=== PATIENT | female | born 1960 | race Caucasian/White ===

== ENCOUNTER 2025-05-04 13:26 | Inpatient (IN) ==
--- NOTE | 2025-05-04 13:42 | Emergency Department Note ---
Impression & Plan Acute hypoxic respiratory failure, CHF (congestive heart failure), Anasarca, Pleural effusion ED Provider Note NAME: MK MOSQUEDA AGE: 65 SEX: F : 1960 ARRIVES VIA: Walk-In INFORMANT: Patient ED PROVIDER(S): Roberto Beaulieu DO CHIEF COMPLAINT: shortness of breath, swelling in legs and abdomin HPI: Patient is a 65-year-old female with a past medical history of alcohol abuse and a smoker who presents to the ER for swelling in her bilateral lower extremities and abdomen which has been getting worse over the past 2 to 3 months. She admits to increasing shortness of breath associated with this. She denies any chest pain or belly pain but notes that her abdomen is swollen and feels distended. No dysuria, urgency, or frequency. No other exacerbating or remitting factors. ADDITIONAL HISTORY OBTAINED: Per HPI Chronic Medical/Social Conditions Affecting Care: Per HPI PAST MEDICAL HISTORY:See Below PAST SURGICAL HISTORY:See Below FAMILY HISTORY:See Below SOCIAL HISTORY:See Below HOME MEDICATIONS:See Below ALLERGIES:See Below VITALS:See Below PHYSICAL EXAMINATION: GENERAL: Sitting up in bed, alert, chronically ill-appearing, disheveled, dyspneic with conversation EYE EXAM: normal conjunctiva. PERRL and EOM's grossly intact. OROPHARYNX: no exudate, no erythema, lips, buccal mucosa, and tongue normal and mucous membranes are moist NECK: supple, no nuchal rigidity, no adenopathy, non-tender LUNGS: Clear to auscultation. Normal chest wall mechanics HEART: no murmurs, S1 normal and S2 normal ABDOMEN: abdomen soft, non-tender, normo-active bowel sounds, no masses, no rebound or guarding. UPPER EXTREMITIES: upper extremities are grossly normal. LOWER EXTREMITIES: Pitting edema in the lower extremity tracking up through the abdomen NEURO EXAM: Normal sensorium, cranial nerves II-XII grossly intact, normal speech, no gross weakness of arms, no gross weakness of legs. MEDICAL DECISION MAKING: Patient is a 65-year-old female who presents to the ER for shortness of breath and swelling in the legs and belly. IVs were established and blood work was obtained. Labs show no significant leukocytosis or anemia. VBG with a pH is 7.36 and a CO2 of 78. INR at 1.2. BMP with hypokalemia 3.2 which was repleted with 40 mill equivalents orally. LFTs bilirubin were fairly unremarkable. Lipase was normal. proBNP elevated at 1300. Chest x-ray with pleural effusions. Patient was given IV Lasix. Was updated at bedside. Discussed case with hospitalist for further evaluation management treatment. She remained on OxyMask while in the ER. Respiratory rate trended down to 18-19. She was in no distress. She felt better. CO2 was elevated however she was significantly improved and will hold on BiPAP at this time and defer to the hospitalist at this time. Consults/Care Managements Discussions: Per [facility] Triage Nursing notes reviewed. Limited review of prior medical records performed Vital Signs: reviewed and remarkable for hypoxic Differential diagnosis: Differential diagnoses includes but is not limited to pneumonia, bronchitis, COPD/Asthma exacerbation, pneumothorax, pulmonary embolism, congestive heart failure, acute coronary syndrome ER treatment provided: See below Diagnostics interpreted by me include EKG and cardiac monitoring as listed below: -Cardiac Monitoring: An order was placed for continuous cardiac monitoring. The monitor shows a rate of 95 with sinus rhythm. -ECG: Sinus rhythm rate 95 Normal axis No PVCs QTc 464 -Laboratory studies:Interpreted by me as stated above in MDM and shown below. Imaging studies: Xrays: As interpreted by me: Portable AP upright 1 view of the chest shows bilateral pleural effusions CTs show: none Procedures:none Critical Care: I have personally spent 45 minutes of critical care time in the direct management of this patient. This includes bedside care, interpretation of diagnostic studies, and testing, discussion with consultants, patient, and family members, and other required patient management activities. This 45 minutes is in excess of all separately billable procedures. Past Med/Surg History Problem List (Updated 05/04/25 @ 15:35 by Sergio Roca DO) Bilateral pleural effusion Acute on chronic heart failure Pleural effusion (Acute) Anasarca (Acute) CHF (congestive heart failure) (Acute) Acute hypoxic respiratory failure (Acute) Social History Smoking Status: Former smoker Preferred Language: Czech Feels Safe at Home: Yes Allergies Allergies Allergy/AdvReac Type Severity Reaction Status Date / Time No Known Allergies Allergy Verified 05/04/25 15:03 Home Meds Home Medications Medication Instructions Recorded Confirmed naproxen sodium 220 mg tablet 220 mg PO Q8H PRN Pain 05/04/25 05/04/25 (Aleve) Results & Data (ED) Vital Signs Vital Signs - 24 hr 05/04/25 13:30 05/04/25 13:44 05/04/25 13:54 Temperature 36.6 C Temperature Source Temporal Artery Scan Pulse Rate 105 H 100 H 96 H Pulse Rate [Apical] Pulse Rate from SpO2 Sensor Respiratory Rate 26 H Respiratory Effort / Characteristics Non-Labored Respiratory Depth Normal Blood Pressure 104/59 L Blood Pressure [Right Arm] Blood Pressure Mean 74 Blood Pressure Mean [Right Arm] Pulse Oximetry 75 L 98 Oxygen Delivery Method Room Air Oxymask Oxygen Flow Rate 5 Sepsis Recent Fever Within 48 Hours No Sepsis New/Unexplained Change in Mental Status Yes Sepsis Action Taken by Nursing No Action Required 05/04/25 14:01 05/04/25 14:30 05/04/25 14:30 Temperature Temperature Source Pulse Rate 93 H Pulse Rate [Apical] Pulse Rate from SpO2 Sensor 98 H Respiratory Rate 19 Respiratory Effort / Characteristics Respiratory Depth Blood Pressure 92/66 L 118/75 118/75 Blood Pressure [Right Arm] Blood Pressure Mean 69 89 88 Blood Pressure Mean [Right Arm] Pulse Oximetry 100 Oxygen Delivery Method Oxymask Other Oxygen Flow Rate 3 Sepsis Recent Fever Within 48 Hours Sepsis New/Unexplained Change in Mental Status Sepsis Action Taken by Nursing 05/04/25 15:00 05/04/25 15:00 05/04/25 15:12 Temperature Temperature Source Pulse Rate 90 96 H Pulse Rate [Apical] Pulse Rate from SpO2 Sensor 88 98 H Respiratory Rate 20 30 H Respiratory Effort / Characteristics Respiratory Depth Blood Pressure 102/67 102/67 Blood Pressure [Right Arm] Blood Pressure Mean 88 88 Blood Pressure Mean [Right Arm] Pulse Oximetry 99 99 Oxygen Delivery Method Oxyhood Oxygen Flow Rate 3 Sepsis Recent Fever Within 48 Hours Sepsis New/Unexplained Change in Mental Status Sepsis Action Taken by Nursing 05/04/25 15:24 Temperature Temperature Source Pulse Rate Pulse Rate [Apical] 96 H Pulse Rate from SpO2 Sensor Respiratory Rate 19 Respiratory Effort / Characteristics Respiratory Depth Blood Pressure Blood Pressure [Right Arm] 110/71 Blood Pressure Mean Blood Pressure Mean [Right Arm] 84 Pulse Oximetry 95 Oxygen Delivery Method Nasal Cannula Oxygen Flow Rate 2 Sepsis Recent Fever Within 48 Hours Sepsis New/Unexplained Change in Mental Status Sepsis Action Taken by Nursing Laboratory Data 05/04/25 13:57 05/04/25 13:57 Lab Results 05/04/25 05/04/25 05/04/25 Range/Units 13:51 13:57 13:58 WBC 8.22 (4.8-10.8) K/ul RBC 5.07 (4.20-5.40) M/uL Hgb 15.4 (12.0-16.0) g/dl POC Hgb 17.7 H (12.0-16.0) g/dl Hct 48.2 H (37.0-47.0) % POC Hct 52 H (37-47) % MCV 95.1 (80.0-100.0) fL MCH 30.4 (25.0-34.0) pg MCHC 32.0 (32.0-36.0) g/dL RDW Std Deviation 58.2 H (36.4-46.3) fL RDW Coeff of Kayode 17.2 H (11.5-14.5) % Plt Count 165 (130-400) K/uL MPV 11.7 (9.4-12.4) fL Immature Gran % (Auto) 0.5 % Neut % (Auto) 75.1 % Lymph % (Auto) 11.9 % Clarke % (Auto) 9.7 % Eos % (Auto) 1.9 % Baso % (Auto) 0.9 % Neut # (Auto) 6.17 (1.40-6.50) K/uL Lymph # (Auto) 0.98 L (1.20-3.40) K/uL Clarke # (Auto) 0.80 H (0.11-0.59) K/uL Eos # (Auto) 0.16 (0.00-0.50) K/uL Baso # (Auto) 0.07 (0.00-0.20) K/uL Immature Gran # (Auto) 0.04 (0.01-0.20) K/uL PT 13.0 H (9.0-12.0) Seconds INR 1.2 H (0.9-1.1) VBG pH 7.36 (7.36-7.41) VBG pCO2 78 H (38-50) mmHg VBG pO2 22 mmHg VBG HCO3 44 mmol/L VBG O2 Saturation < 60.0 % VBG Base Excess 14.7 mEq/L POC Sodium 142 (135-144) mmol/L Sodium 143 (136-145) mmol/L POC Potassium 3.1 L (3.3-5.0) mmol/L Potassium 3.2 L (3.5-5.1) mmol/L POC Chloride 94 L (101-112) mmol/L Chloride 96 L (98-107) mmol/L Carbon Dioxide 42 H* (21-32) mmol/L POC Total CO2 37 H (24-31) mmol/L Anion Gap 5 (3-11) POC Anion Gap 15.0 L (16-25) mmol/L POC BUN 16 (7-18) mg/dl BUN 14 (6-23) mg/dl Creatinine 0.58 L (0.6-1.2) mg/dl POC Creatinine 0.7 (0.6-1.3) mg/dl Est Cr Clr Drug Dosing 98.0 ml/min eGFR 100.36 BUN/Creatinine Ratio 24.1 H (10-20) Glucose 92 (70-99(Fasting)) mg/dl POC Glucose (other) 90 (70-99) mg/dl Calcium 8.7 (8.6-10.3) mg/dl POC Ioniz Calcium Harvey 1.10 L (1.12-1.32) mmol/l Total Bilirubin 1.6 H (0.2-1.0) mg/dl AST 20 (13-39) U/L ALT 11 (7-52) U/L Alkaline Phosphatase 79 (34-104) U/L Troponin I High Sens 8.5 (0-14) pg/ml B-Natriuretic Peptide 1372 H (0-100) pg/ml Total Protein 7.3 (6.0-8.3) gm/dl Albumin 3.1 L (3.4-5.0) gm/dl Globulin 4.2 H (2.5-4.0) gm/dl Albumin/Globulin Ratio 0.7 L (0.9-2) Lipase 11 (11-82) U/L Administered Medications Discontinued Medications Furosemide (Furosemide 40 Mg/4 Ml Vial) 40 mg IV NOW STA Stop: 05/04/25 14:44 Last Admin: 05/04/25 15:24 Dose: 40 mg Documented By: BS Potassium Chloride (Potassium Chloride Crtab 20 Meq Tabcr) 40 meq PO NOW STA Stop: 05/04/25 14:44 Last Admin: 05/04/25 15:24 Dose: 40 meq Documented By: BS Imaging Data Radiologist's Impression: Chest X-Ray 05/04/25 13:39 XR chest 1V portable CLINICAL HISTORY: Chest pain, nonspecific. COMPARISON STUDY: No previous studies for comparison. FINDINGS: There is no pneumothorax. [id number] bilateral pleural effusions are noted with associated bibasilar opacities. There may be elevation of the left hemidiaphragm. The heart is enlarged. There is interstitial thickening. Asymmetric left hilar prominence is likely due to the left pulmonary artery. IMPRESSION: 1. Cardiomegaly with interstitial pulmonary edema and small to moderate bilateral pleural effusions. Assisted bibasilar opacities may represent atelectasis or superimposed pneumonia. Radiographic follow-up to ensure resolution is recommended. 2. Asymmetric left hilar prominence, likely due to a dilated left pulmonary artery. However, this should be assessed on follow-up exams to exclude the possibility of underlying lymphadenopathy. ACT 112: Negative or not required by law. Electronically signed by: Cornell Watkins M.D. 05/04/2025 1:54 PM Discharge Plan Visit Data Chief Complaint: Leg Weakness, Bilateral Stated Complaint: FLUID RETENTION/SWELLING, ARM/LEG WEAKNESS ED Provider: Roberto Beaulieu Discharge Problem: Acute hypoxic respiratory failure, CHF (congestive heart failure), Anasarca, Pleural effusion Condition: Serious Forms Stand Alone Forms: [email or web address] Prescriptions Prescriptions: No Action naproxen sodium [Aleve] 220 mg Tablet 220 mg PO Q8H PRN (Reason: Pain) Referrals Referrals: PCP,NO [Primary Care Provider] - Discharge Problem: CHF (congestive heart failure) Qualifiers: Heart failure type: unspecified Heart failure chronicity: unspecified Qualified Code(s): I50.9 - Heart failure, unspecified
--- NOTE | 2025-05-04 13:55 | XRay Report ---
XR chest 1V portable CLINICAL HISTORY: Chest pain, nonspecific. COMPARISON STUDY: No previous studies for comparison. FINDINGS: There is no pneumothorax. [id number] bilateral pleural effusions are noted with asso ciated bibasilar opacities. There may be elevation of the left hemidiaphragm. The heart is enlarged. There is interstitial thickening. Asymmetric left hilar prominence is likely due to the left pulmonar y artery. IMPRESSION: 1. Cardiomegaly with interstitial pulmonary edema and small to moderate bilateral pleural effusions. Assisted bibasilar opacities may represent atelectasis or superimposed pneumonia. Radiographic follow -up to ensure resolution is recommended. 2. Asymmetric left hilar prominence, likely due to a dilated left pulmonary artery. However, this ananth uld be assessed on follow-up exams to exclude the possibility of underlying lymphadenopathy. ACT 112: Negative or not required by law. Electronically signed by: Cornell Watkins M.D. 05/04/2025 1:54 PM
[2025-05-04 14:13] LABS: Hematocrit (blood only) 48.2 % (37.0-47.0); Hemoglobin 15.4 g/dl (12.0-16.0); Immature Granulocytes # (auto) 0.04 K/uL (0.01-0.20); Immature Granulocytes % (auto) 0.5 %; Mean Corpuscular Hemoglobin 30.4 pg (25.0-34.0); Mean Corpuscular Volume 95.1 fL (80.0-100.0); Platelet Count 165 K/uL (130-400); RDW Standard Deviation 58.2 fL (36.4-46.3); Red Blood Count 5.07 M/uL (4.20-5.40); White Blood Count 8.22 K/ul (4.8-10.8)
[2025-05-04 14:19] LABS: Base Excess VBG 14.7 mEq/L; HCO3 VBG 44 mmol/L; Oxygen Saturation VBG < 60.0 %; PCO2 VBG 78 mmHg (38-50); PO2 VBG 22 mmHg; pH VBG 7.36 (7.36-7.41)
[2025-05-04 14:33] LABS: Alanine Aminotransferase 11.0 U/L (7-52); Albumin Globulin Ratio 0.7 (0.9-2); Alkaline Phosphatase 79.0 U/L (34-104); Anion Gap 5.0 (3-11); Bilirubin,Total 1.6 mg/dl (0.2-1.0); Blood Urea Nitrogen 14.0 mg/dl (6-23); Calcium 8.7 mg/dl (8.6-10.3); Carbon Dioxide 42.0 mmol/L (21-32); Chloride 96.0 mmol/L (98-107); Creatinine Clr Calc Pharmacy 98.0 ml/min; Globulin 4.2 gm/dl (2.5-4.0); Glucose 92.0 mg/dl (70-99(Fasting)); Lipase 11.0 U/L (11-82); Potassium 3.2 mmol/L (3.5-5.1); Sodium 143.0 mmol/L (136-145); Total Protein 7.3 gm/dl (6.0-8.3)
[2025-05-04 14:42] LABS: INR 1.2 (0.9-1.1); Prothrombin Time 13.0 Seconds (9.0-12.0)
[2025-05-04] MEDS: POTASSIUM CHLORIDE CRTAB 20 MEQ TABCR PO STA (15:24)
[2025-05-04] MEDS: FUROSEMIDE 40 MG/4 ML VIAL IV STA (15:24)
--- NOTE | 2025-05-04 15:37 | History & Physical Report ---
Date of Service May 04, 2025 Assessment & Plan (1) Acute on chronic heart failure: (2) Anasarca: (3) Acute hypoxic respiratory failure: (4) Bilateral pleural effusion: Plan Patient 65-year-old female presents with anasarca, high suspicion for possible alcohol induced cardiomyopathy and/or cirrhosis due to her history of alcohol use. Admit to monitored setting Replace potassium Aggressively diurese Monitor electrolytes and renal function Echocardiogram CT of the abdomen pelvis to evaluate for cirrhosis and ascites I anticipate her hypoxia will improve as she diuresis, titrate oxygen to off as able Pending findings on echocardiogram will start goal-directed medical therapy as indicated Discussed advanced directives with the patient, she request full code Son at the bedside agreeable to plan of care History of Present Illness Chief Complaint: Leg swelling and belly swelling Primary Care Provider: NO PCP Patient 65-year-old female who has essentially had no medical care for at least 5 years. Essentially forced to come to the emergency room today by her children for increasing swelling in her legs and abdomen. In the emergency room was noted to be significantly volume overloaded and hypokalemic. Imaging revealed some pleural effusions. I was referred to our service for further evaluation. Time my evaluation patient has received some Lasix and potassium. She is already starting to diurese. Son is at the bedside. She states that she was having a little bit of short of breath with activity. She denies any chest pain. She cannot say how long she has noticed the swelling but has noticed increasing from her legs to her thighs to her hips to her abdomen. She also having some swelling in her left upper extremity. She denies any fever or chills, no cough or cold symptoms. No real changes in her bowel or bladder habits. She is not aware of any other medical conditions. She has not had any significant surgeries. She does have a extensive history of alcohol use. Sounds like she drank mostly beer. She states that she has not had a beer for over 2 months and her son at the bedside confirms. She also states that she has extensive smoking history she also quit smoking about 2 months ago and this is confirmed by her son. Allergies Allergy/AdvReac Type Severity Reaction Status Date / Time No Known Allergies Allergy Verified 05/04/25 15:03 Home Medications Medication Instructions Recorded Confirmed Type naproxen sodium 220 mg tablet 220 mg PO Q8H PRN Pain 05/04/25 05/04/25 History (Aleve) Past Med/Surg History Problem List (Updated 05/04/25 @ 15:35 by Sergio Roca DO) Bilateral pleural effusion Acute on chronic heart failure Pleural effusion (Acute) Anasarca (Acute) CHF (congestive heart failure) (Acute) Acute hypoxic respiratory failure (Acute) Social History Smoking Status: Former smoker Preferred Language: Guyanese Feels Safe at Home: Yes Review of Systems Review of Systems: Pertinent positive and negative review of systems as mentioned in the HPI Physical Exam Physical Exam: Constitutional: Alert, nontoxic, slight distress due to her edema HEENT: Mucous membranes moist. Sclera clear Neck: Soft, no adenopathy Lungs: Decreased breath sounds, prolonged expiratory phase, no wheezes, crackles at the bases CV: S1-S2, regular, no significant murmur Abdomen: Soft, nontender, nondistended, questionable fluid wave, extensive edema in her abdominal pannus essentially up to her nipples Extremities: Severe edema in the lower extremities +4 up through the hips and thighs, 2+ edema left upper extremity Musculoskeletal: No significant swollen or tender joints Derm: Some ruborous and flaking skin of the lower extremity consistent with her edema, no evidence of cellulitis Neuro: No focal deficits Psych: Cooperative, normal mood Results & Data Results & Data Vital Signs (Past 12 Hours) Vital Signs Temp Pulse Pulse Resp BP BP Pulse Ox 05/04/25 15:24 96 H 19 110/71 95 05/04/25 15:12 96 H 30 H 99 05/04/25 15:00 102/67 05/04/25 15:00 90 20 102/67 99 05/04/25 14:30 118/75 05/04/25 14:30 93 H 19 118/75 100 05/04/25 14:01 92/66 L 05/04/25 13:54 96 H 05/04/25 13:44 100 H 98 05/04/25 13:30 36.6 C 105 H 26 H 104/59 L 75 L O2 Del Method O2 Flow Rate 05/04/25 15:24 Nasal Cannula 2 05/04/25 15:12 05/04/25 15:00 05/04/25 15:00 Oxyhood 3 05/04/25 14:30 05/04/25 14:30 Oxymask, Other 3 05/04/25 14:01 05/04/25 13:54 05/04/25 13:44 Oxymask 5 05/04/25 13:30 Room Air Diagnostic Findings Reviewed imaging, laboratory and diagnostic studies. Pertinent findings as below. Hemoglobin 17.7 platelets of 165.2 Sodium 143 Potassium 3.2 Carbon dioxide 42 Creatinine 0.58 Bili more range Troponin within normal range BNP 1372 Personally reviewed chest x-ray, bilateral pleural effusions and haziness/edema in the lower lobes Code Status & VTE Plan VTE Prophylaxis Plan VTE Prophylaxis will be ordered: Yes
[2025-05-04] MEDS: FOLIC ACID 1 MG in SYRINGE 9.8 ML IV STA (15:43)
[2025-05-04] MEDS: THIAMINE HCL 100 MG in SYRINGE 9 ML IV STA (15:43)
[2025-05-04] MEDS ORDERED: ALUMINUM/MAGNESIUM SUSP 30 ML UDC PO PRN (17:56)
[2025-05-04] MEDS ORDERED: MELATONIN 3 MG TAB PO PRN (17:56)
[2025-05-04] MEDS ORDERED: POLYETHYLENE (MIRALAX) 17 GM PACK PO PRN (17:56)
[2025-05-04] MEDS ORDERED: ACETAMINOPHEN 325 MG TAB PO PRN (17:56)
[2025-05-04] MEDS ORDERED: ONDANSETRON INJ 2 MG/ML 2 ML VIAL IV PRN (17:56)
[2025-05-04] MEDS: POTASSIUM CHLORIDE CRTAB 20 MEQ TABCR PO SCH (18:37)
[2025-05-04] MEDS: ENOXAPARIN INJ 40 MG/0.4 ML SYR SQ SCH (18:38)
--- NOTE | 2025-05-04 19:09 | CT Scan Report ---
CT ABDOMEN and PELVIS without INTRAVENOUS CONTRAST HISTORY: Abdominal pain TECHNIQUE: CT abdomen and pelvis without contrast. IV CONTRAST: None ENTERIC CONTRAST: None. COMPARISON: None. FINDINGS: LOWER CHEST: Cardiomegaly. There are coronary calcifications. Small pericardial fluid. Small pleural fluids. Emphysematous changes. LIVER: No focal lesion identified in this noncontrast study. Cirrhotic liver. GALLBLADDER/BILIARY: Cholelithiasis without evidence of cholecystitis. No abnormal biliary dilatation. SPLEEN: Unremarkable. PANCREAS: Unremarkable. ADRENALS: Unremarkable. KIDNEYS: Unremarkable. No stones or hydronephrosis identified. PERITONEUM/RETROPERITONEUM. Large volume abdominopelvic ascites. No lymphadenopathy by size criteria. No aortic aneurysm. ExtensiveCirrhosis GASTROINTESTINAL: No obstruction. Normal appendix. Colonic diverticulosis without evidence of diverticulitis. REPRODUCTIVE: No suspicious pelvic mass identified. ABDOMINAL WALL: Diffuse anasarca. BONES: No acute findings. IMPRESSION: Cirrhosis. Large volume abdominopelvic ascites. Anasarca CHF with cardiomegaly and small pleural fluids. Electronically signed by Danny Figueroa 05-04-2025 7:08 PM
[2025-05-04] MEDS: FUROSEMIDE 40 MG/4 ML VIAL IV SCH (22:35)
[2025-05-05 07:32] LABS: Hematocrit (blood only) 42.0 % (37.0-47.0); Hemoglobin 13.4 g/dl (12.0-16.0); Mean Corpuscular Hemoglobin 30.3 pg (25.0-34.0); Mean Corpuscular Volume 95.0 fL (80.0-100.0); Platelet Count 128 K/uL (130-400); RDW Standard Deviation 58.0 fL (36.4-46.3); Red Blood Count 4.42 M/uL (4.20-5.40); White Blood Count 7.16 K/ul (4.8-10.8)
[2025-05-05 08:04] LABS: Anion Gap 3.0 (3-11); Blood Urea Nitrogen 15.0 mg/dl (6-23); Calcium 7.9 mg/dl (8.6-10.3); Carbon Dioxide 42.0 mmol/L (21-32); Chloride 98.0 mmol/L (98-107); Cholesterol 87.0 mg/dl (0-200); Creatinine Clr Calc Pharmacy 80.2 ml/min; Glucose 70.0 mg/dl (70-99(Fasting)); HDL Cholesterol 42.0 mg/dl; Magnesium 1.7 mg/dl (1.7-2.4); Potassium 4.1 mmol/L (3.5-5.1); Sodium 143.0 mmol/L (136-145); Thyroid Stimulating Hormone 0.895 uIu/ml (0.300-4.500); Triglycerides 48.0 mg/dl (0-150)
[2025-05-05] MEDS: PNEUMOCOCCAL VACCINE (PCV20) 20-VAL CONJ-DIP CRM/PF 0.5 ML SYR IM ONE (09:20)
[2025-05-05] MEDS: SPIRONOLACTONE 100 MG TAB PO SCH (10:37)
[2025-05-05] MEDS: POTASSIUM CHLORIDE CRTAB 20 MEQ TABCR PO SCH (10:39)
--- NOTE | 2025-05-05 10:56 | Hospitalist Progress Note ---
Date of Service May 05, 2025 Assessment & Plan (1) Alcoholic cirrhosis of liver with ascites: (2) Acute on chronic respiratory failure with hypoxia and hypercapnia: (3) Acute on chronic heart failure: (4) Anasarca: (5) Bilateral pleural effusion: Plan 65-year-old female who has not had medical care for many years presents with anasarca. Patient is responding well to diuresis Decrease Lasix to 2 times daily, add Aldactone in the setting of cirrhosis Reviewed CT, cirrhosis most likely from years of alcohol use, will schedule for ultrasound-guided paracentesis on Wednesday, I suspect she may need paracentesis and not be able to diurese all this fluid with medication Patient appears to be chronically hypercapnic with elevated pCO2 and compensated carbon dioxide on on BMP, minimal oxygen supplementation to maintain an O2 sat of 88% or better Potassium has been repleted, continue replacement however decrease frequency with the addition of Aldactone monitor electrolytes daily Monitor renal function Encourage activity Echocardiogram pending Admission and Anticipated Discharge Date Admission Date: May 04, 2025 Subjective Patient states she is feeling much better. Has put out a lot of urine. Swelling in arms and abdomen is improved. She is quite pleased with the progress. Physical Exam Physical Exam: Constitutional: Alert, nontoxic HEENT: Mucous membranes moist. Lungs: Decreased breath sounds, prolonged expiratory phase, dull and few crackles at the bases CV: S1-S2, regular Abdomen: Abdominal pannus edema decreased. Still some fluid wave, no tenderness Extremities: Edema in left upper extremity resolved, decreased edema in the lower extremities, still with significant edema upper thighs and pelvis but skin is starting to loosen, skin is less red Neuro: No focal deficits, generally weak Psych: Cooperative, normal mood Results & Data Results & Data Vital Signs (Past 12 Hours) Vital Signs Temp Pulse Pulse Resp BP Pulse Ox O2 Del Method 05/05/25 07:14 36.3 C L 80 18 97/62 L 95 Nasal Cannula 05/05/25 05:30 79 05/05/25 03:35 36.3 C L 89 18 106/69 95 Room Air 05/04/25 23:36 Nasal Cannula O2 Flow Rate 05/05/25 07:14 3 05/05/25 05:30 05/05/25 03:35 05/04/25 23:36 3 Diagnostic Findings Reviewed imaging, laboratory and diagnostic studies. Pertinent findings as below. CBC stable Potassium 4.1 Carbon oxide 42 Creatinine 0.68 Magnesium 1.7 LFTs stable Lipid panel reviewed TSH 0.89 CT of the abdomen pelvis shows significant cirrhosis and ascites.
[2025-05-05] MEDS: FUROSEMIDE 40 MG/4 ML VIAL IV SCH (15:44)
[2025-05-06 08:33] LABS: Anion Gap 3.0 (3-11); Blood Urea Nitrogen 17.0 mg/dl (6-23); Calcium 8.1 mg/dl (8.6-10.3); Carbon Dioxide 41.0 mmol/L (21-32); Chloride 96.0 mmol/L (98-107); Creatinine Clr Calc Pharmacy 71.8 ml/min; Glucose 96.0 mg/dl (70-99(Fasting)); Magnesium 1.6 mg/dl (1.7-2.4); Potassium 4.9 mmol/L (3.5-5.1); Sodium 140.0 mmol/L (136-145)
--- NOTE | 2025-05-06 09:11 | Cardiology Consultation ---
Date of Consultation May 06, 2025 Assessment & Plan (1) Acute on chronic respiratory failure with hypoxia and hypercapnia: (2) Right heart failure due to pulmonary hypertension: (3) Alcoholic cirrhosis of liver with ascites: (4) Anasarca: (5) Bilateral pleural effusion: Plan 65 year old female with longstanding history of alcohol dependence and tobacco use with no medical care for the past five years who presented to [facility] on 05/04/25 for evaluation of lower leg and abdominal swelling. Found to be significantly volume overloaded upon admission with hypokalemia. Admitted for acute on chronic respiratory failure secondary to acute systolic heart failure exacerbation, p ulmonary hypertension, and alcoholic cirrhosis of liver with ascites. Received IV Lasix and potassium supplementation. ECHO upon admission with findings c/w right-sided CHF and significant pulmonary hypertension. Has significant alcohol cirrhosis with ascites and anasarca and tentatively scheduled for ultrasound- guided paracentesis tomorrow morning. Recommendations: * Appears volume overloaded upon examination with significant abdominal distension and bilateral lower extremity pitting edema * Good response to IV diuresis with total cumulative output -3.5 L and weight trending down * Kidney function remains stable on AM labs * Continue IV Lasix 40 mg BID for diuresis * Continue spironolactone 100 mg daily * Would consider starting midodrine if blood pressure remains low with IV diuresis * Continue to monitor and replace electrolytes as needed (goal K+ 4.0; Mg 2.0) * Daily weights via standing scale and document accurate I&Os * Reinforced CHF education Case discussed and coordinated with Dr. Paulino. Please see Dr. Paulino notes for further recommendations. I spent a total of 45 minutes coordinating, documenting, and providing care for this patient excluding time spent in the performance of separately billed services or time spent by another provider/QHP. BELINDA Montgomery Department of Cardiology Supervising Physician Co-Signing Physician Notes I spent a total of 60 minutes on the date of service in preparation, delivery, and documentation of the care provided to this patient, excluding any time spent in the performance of separately billed services. I have personally performed a history and physical examination on the patient. I have reviewed the advance practitioner's documentation, and I agree with, and take responsibility for the plan of care. 65-year-old female with past medical history of chronic tobacco and alcohol use presented with symptoms of shortness of breath, abdominal distention and lower extreme edema which has been ongoing for the past couple years but has worsened in the last 2 months. She denies any prior history of CAD/CHF. She states she has not seen a physician in many years. Prior to admission she was drinking 4-5 beers a day which she has quit in the last month. Patient states that her swelling was getting significantly worse and then her family advised her to come to the emergency room. Her ECG showed sinus rhythm with no acute ischemic changes. Echocardiogram showed LVEF of 50 to 54%, severe RV enlargement and severely reduced RV systolic function with severe TR and flattening septum consistent with RV pressure and volume overload. Had a long discussion with patient and her family about her severe RV failure. She is tolerating diuretics well however borderline hypotensive. We can consider midodrine if her blood pressure remains low. She is for paracentesis tomorrow. At some point we will need to do a right heart catheterization however first we must optimize patient's volume status. History of Present Illness Reason for Consultation: RV failure Requesting Physician: Sergio Roca DO Attending Physician: Sergio Roca DO History of Present Illness 65 year old female with no medical care for the past five years and no known past medical history who presented to [facility] on 05/04/25 for evaluation of lower leg and abdominal swelling. Found to be significantly volume overloaded upon admission with hypokalemia. Received IV Lasix and potassium supplementation. She developed indigestion symptoms with gas and abdominal upset in February 2025. At that time, she noticed worsening abdominal bloating, loss of appetite, and lower leg swelling. Does not routinely check her weight at home. She notes shortness of breath at baseline that she attributes to long-term history of tobacco use. Denies worsening shortness of breath, orthopnea, or PND. Denies chest pressure, pain, tachy palpitations, lightheadedness, dizziness, or syncope. Denies fever, chills, muscle aches, nausea, vomiting, or flu-like symptoms. Denies past medical history of heart problems and has never followed with cardiology. Former smoker. She smoked 1 pack/day since she was 18 years old and quit 3 months ago. History of alcohol dependence. She was drinking 3 -12 ounce beers every day since she was a college. Quit three months ago. Denies illicit drug use. Denies significant family history of cardiovascular disease. Allergies Allergy/AdvReac Type Severity Reaction Status Date / Time No Known Allergies Allergy Verified 05/04/25 15:03 Home Medications Medication Instructions Recorded Confirmed Type naproxen sodium 220 mg tablet 220 mg PO Q8H PRN Pain 05/04/25 05/04/25 History (Walter) Patient History Social History Smoking Status: Former smoker Tobacco Type: Cigarettes Hx Alcohol Use: Yes Alcohol type: beer Hx Substance Use: No Preferred Language: Vietnamese Manager Mortgage Required: No Beliefs That Will Affect Care: None Current Living Situation: Spouse Feels Safe at Home: Yes Safety Concerns: Feels Safe At This Time Assistive Devices: Bedside Commode and Glasses Review of Systems Review of Systems: See HPI for pertinent positives. All others negative other than those noted in the HPI. CONSTITUTIONAL: No change in weight, No weakness, No fatigue, No fevers, No sweats or chills. HEENT: No visual changes, No epistaxis, No bleeding gums, No dysphagia, PULMONARY: +shortness of breath. No cough, sputum, or hemoptysis, No wheezing,and No recent change in breathing. CARDIOVASCULAR: +edema. No chest pain, No dyspnea on exertion, No edema, No palpitations, No syncope, No claudication, No calf pain. GASTROINTESTINAL: +abdominal pain, loss of appetite. No change in bowel habits, No significant heartburn, No nausea, No vomiting, No diarrhea, No constipation, No blood in stools or black tarry stools, No dysphagia. HEMATOLOGIC: No abnormal bleeding and No bruising. NEUROLOGICAL: No falls, No dizziness, No lightheadedness, Normal balance, No headaches, and No weakness. PSYCH: No sleep disturbances, No mood changes. Physical Exam Physical Exam: Vital signs within normal limits as above. General: Well developed and nourished. No acute distress. A+Ox3. HEENT: Normocephalic. Atraumatic. EOMI. Conjunctiva and sclera clear. NECK: Trachea midline. No thyromegaly. No carotid bruits. No JVD. Carotid upstrokes are brisk. Heart: RRR. S1 and S2 noted. No murmur. No rubs or gallops. PMI non displaced. Lungs: Diminished breath sounds throughout posterior lobes. Clear to auscultation. No wheezes.No rhonchi. No rales. Abdomen: Abdominal distension. Normal bowel sounds. Soft. Nontender. No abdo tia bruits. Extremities: +1 BLE pitting edema. Normal capillary refill. No clubbing or cyanosis. Pulses: radial=2/4, dorsal pedis=2/4. Skin: Warm and dry. NEURO: No focal deficits. PSYCH: Appropriate affect and insight. Results & Data Vital Signs (Past 12 Hours) Vital Signs Temp Pulse Pulse Resp BP Pulse Ox O2 Del Method 05/06/25 07:41 36.8 C 77 18 96/61 L 97 Nasal Cannula 05/06/25 05:19 83 05/06/25 05:04 93 Nasal Cannula 05/06/25 03:46 36.5 C 88 18 95/65 L 91 Nasal Cannula 05/05/25 23:18 36.6 C 80 20 113/75 97 Nasal Cannula 05/05/25 22:42 Nasal Cannula 05/05/25 21:55 93 H O2 Flow Rate 05/06/25 07:41 2 05/06/25 05:19 05/06/25 05:04 2 05/06/25 03:46 2 05/05/25 23:18 2 05/05/25 22:42 2 05/05/25 21:55 Laboratory Results Comprehensive Metabolic Panel 05/06/25 Range/Units 06:49 Sodium 140 (136-145) mmol/L Potassium 4.9 (3.5-5.1) mmol/L Chloride 96 L (98-107) mmol/L Carbon Dioxide 41 H* (21-32) mmol/L BUN 17 (6-23) mg/dl Creatinine 0.76 (0.6-1.2) mg/dl Glucose 96 (70-99(Fasting)) mg/dl Calcium 8.1 L (8.6-10.3) mg/dl Intake and Output 05/05/25 05/06/25 05/06/25 22:59 06:59 14:59 Intake Total 440 / 940 Output Total 1802 1200 / 1803 Balance -2 / -863 -760 / -863 Intake: Oral 440 / 940 Output: Urine Amount (Catheter) 1200 / 1800 External 1200 / 1800 # Bowel Movements 2 / 3 Other: # Unmeasured Voids 1 Weight 72.1 kg Weight Measurement Method Built in [facility] Diagnostic Findings ECHO 05/05/25 ECHO findings consistent with right-sided CHF and significant pulmonary hypert ension The right ventricular systolic function is moderate to severely reduced The right atrium is severely dilated There is severe tricuspid regurgitation The inferior vena cava is severely dilated The left ventricle is grossly normal in size The left ventricular ejection fraction is grossly normal Flattened septum is consistent with RV pressure/volume overload EKG 05/04/25 NSR with premature supraventricular complexes 95 bpm QTc 464 PG Care Time/CCT Total # of Minutes Spent Total Time Spent with Patient: Total time spent is greater than 50% in coordination of care (as documented) at patient's floor/unit and/or counseling patient: Coding [place] [address] IN/OBS CONSULT LVL 4,60M Patient Type Established Diagnoses Acute on chronic respiratory failure with hypoxia and hypercapnia J96.21; J96.22 Right heart failure due to pulmonary hypertension I27.29; I50.810 Alcoholic cirrhosis of liver with ascites K70.31 Anasarca R60.1 Bilateral pleural effusion J90 Time Spent (min) 60
--- NOTE | 2025-05-06 12:25 | Hospitalist Progress Note ---
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 Patient has significant alcohol cirrhosis with ascites and anasarca. Patient also has severe right ventricular heart failure due to pulmonary hypertension as evidenced by echocardiogram. Continue IV diuresis with Lasix Continue Aldactone Replace electrolytes as needed Paracentesis planned for tomorrow Consult cardiology for right ventricular failure and tricuspid regurgitation., Communication with cardiology team Patient has evidence of chronic hypoxia and hypercapnia. Patient requiring low- flow oxygen. Would not titrate over 3 L. Anticipate will need outpatient pulmonary office evaluation and PFTs. May be a candidate for further interventions for her pulmonary hypertension. Encourage activity as tolerated Patient's systolic blood pressure maintaining in the 90s, suspect this is her baseline blood pressure. Has been remaining stable with diuresis. Patient is asymptomatic. Admission and Anticipated Discharge Date Admission Date: May 04, 2025 Subjective Patient states that she does feel little bit better but can tell that her abdomen is still full of fluid. Physical Exam Physical Exam: Constitutional: Alert, nontoxic HEENT: Mucous membranes moist. Lungs: Decreased breath sounds, prolonged expiratory phase, no wheezes, dullness at bases bilaterally with crackles CV: S1-S2, regular Abdomen: Soft, nontender, positive fluid wave, still edema within the abdominal pannus however decreasing Extremities: Still significant edema lower extremity up through the thighs however decreasing, skin seems to be a little looser Neuro: No focal deficits, generally weak Psych: Cooperative, normal mood Results & Data Results & Data Vital Signs (Past 12 Hours) Vital Signs Temp Pulse Pulse Resp BP Pulse Ox O2 Del Method 05/06/25 11:34 36.5 C 79 18 93/54 L 91 Nasal Cannula 05/06/25 07:41 36.8 C 77 18 96/61 L 97 Nasal Cannula 05/06/25 05:19 83 05/06/25 05:04 93 Nasal Cannula 05/06/25 03:46 36.5 C 88 18 95/65 L 91 Nasal Cannula O2 Flow Rate 05/06/25 11:34 2 05/06/25 07:41 2 05/06/25 05:19 05/06/25 05:04 2 05/06/25 03:46 2 Diagnostic Findings Reviewed imaging, laboratory and diagnostic studies. Pertinent findings as below. Potassium 4.9 Carbon oxide 41, stable Creatinine 0.76 Magnesium 1.6 Echocardiogram shows significant right ventricular failure, dilated right atrium, severe tricuspid regurg, dilated inferior vena cava, significant pulmonary hypertension
[2025-05-06] MEDS: MAGNESIUM OXIDE 400 MG TAB PO SCH (12:33)
--- NOTE | 2025-05-06 12:52 | Electrocardiogram Report ---
Test Reason : Blood Pressure : */* mmHG Vent. Rate : 95 BPM Atrial Rate : 95 BPM P-R Int : 156 ms QRS Dur : 80 ms QT Int : 370 ms P-R-T Axes : -10 169 -19 degrees QTcB Int : 464 ms Sinus rhythm with Premature supraventricular complexes vs wandering atrial pacemaker Possible Right ventricular hypertrophy Cannot rule out Inferior infarct , age undetermined Abnormal ECG No previous ECGs available Confirmed by Delores Farrell (Alessandra) on 05/06/2025 12:52:29 PM Referred By: REFERRED SELF Confirmed By: Delores Farrell
[2025-05-07 06:24] LABS: Hematocrit (blood only) 37.0 % (37.0-47.0); Hemoglobin 12.2 g/dl (12.0-16.0); Immature Granulocytes # (auto) 0.03 K/uL (0.01-0.20); Immature Granulocytes % (auto) 0.4 %; Mean Corpuscular Hemoglobin 31.0 pg (25.0-34.0); Mean Corpuscular Volume 94.1 fL (80.0-100.0); Platelet Count 119 K/uL (130-400); RDW Standard Deviation 56.1 fL (36.4-46.3); Red Blood Count 3.93 M/uL (4.20-5.40); White Blood Count 6.79 K/ul (4.8-10.8)
[2025-05-07 06:58] LABS: Anion Gap 3.0 (3-11); Blood Urea Nitrogen 15.0 mg/dl (6-23); Calcium 8.2 mg/dl (8.6-10.3); Carbon Dioxide 40.0 mmol/L (21-32); Chloride 94.0 mmol/L (98-107); Creatinine Clr Calc Pharmacy 70.8 ml/min; Glucose 105.0 mg/dl (70-99(Fasting)); Magnesium 1.7 mg/dl (1.7-2.4); Potassium 5.1 mmol/L (3.5-5.1); Sodium 137.0 mmol/L (136-145)
[2025-05-07 07:04] LABS: INR 1.2 (0.9-1.1); Prothrombin Time 12.7 Seconds (9.0-12.0)
--- NOTE | 2025-05-07 10:03 | Cardiology Progress Note ---
Date of Service May 07, 2025 Assessment & Plan (1) Acute on chronic respiratory failure with hypoxia and hypercapnia: (2) Right heart failure due to pulmonary hypertension: (3) Alcoholic cirrhosis of liver with ascites: (4) Anasarca: (5) Bilateral pleural effusion: Plan 65 year old female with longstanding history of alcohol dependence and tobacco use with no medical care for the past five years who presented to [facility] on 05/04/25 for evaluation of lower leg and abdominal swelling. Found to be significantly volume overloaded upon admission with hypokalemia. Admitted for acute on chronic respiratory failure secondary to acute systolic heart failure exacerbation, pulmonary hypertension, and alcoholic cirrhosis of liver with ascites. Received IV Lasix and potassium supplementation. ECHO upon admission with findings c/w right-sided CHF and significant pulmonary hypertension. Has significant alcohol cirrhosis with ascites and anasarca and tentatively scheduled for ultrasound- guided paracentesis tomorrow morning. -Diuresing well -Still edematous continue IV diuresis. -Creatinine .77 -K 5.1 Aldactone held for now. -Accurate daily I/O's and weights. -Education on fluid restriction and low sodium diet and restriction. I spent a total of 30 minutes on the date of service in preparation, delivery, and documentation of the care provided to this patient, excluding any time spent in the performance of separately billed services. Casey TREVINO Department of Cardiology, [facility] This chart was completed in part utilizing Speech Voice Recognition Software. Grammatical errors, random word insertions, pronoun errors, and incomplete sentences are an occasional consequence of this system due to software limitations, ambient noise, and hardware issues. Any formal questions or concerns about the content, text, or information contained within the body of this dictation should be directly addressed to the provider for clarification. Admission and Anticipated Discharge Date Admission Date: May 04, 2025 Supervising Physician Co-Signing Physician Notes Attending attestation: Case reviewed with the advanced practitioner. I have personally performed a history and physical examination on the patient. I have reviewed the advanced practitioner's documentation on the date of service referenced in note, and I agree with, and take responsibility for the plan of care. Subjective: Patient seen and examined. Her son, Ramesh, was at the bedside. Subjectively she notes marked improvement and has been diuresing about 2 L/day for the last 3 days. Patient underwent paracentesis today under ultrasound guidance, yielding 700 mL of fluid. She is currently not on telemetry as of 550 on 05/07/2025. Earlier today, sinus rhythm at rest around 100 bpm noted. Exam: Cardiovascular: Tachycardic, 2/6 systolic murmur, 1+ bilateral lower extremity edema Abdomen: Mildly distended, soft Data: Echocardiogram reviewed independently with severe right-sided chamber enlargement, D-shaped septum, consistent with right ventricular pressure/volume overload, severe tricuspid regurgitation. Impression/ Plan: (1) Acute on chronic respiratory failure with hypoxia and hypercapnia: (2) Right heart failure due to pulmonary hypertension: (3) Alcoholic cirrhosis of liver with ascites: (4) Anasarca: (5) Bilateral pleural effusion: I asked the patient about her alcohol use. At first she stated that she was drinking 3 drinks per day, ceased two months ago, but on further discussion her and her son just said she was drinking "a lot ". She also quit smoking two months ago. She states that it has been about 5 years since she had been seen by healthcare provider in [place]. Continue furosemide 60 mg IV twice daily. I have held her spironolactone as potassium has trended up to 5 mmol/L Recheck BMP tomorrow. I requested a repeat limited echo with the administration of agitated saline contrast to assess for interatrial shunt. Further recommendations with regards to workup to be forthcoming as her volume status improves. The patient is preload dependent, and at present I would hold off on adding an additional medication such as metoprolol. I spent a total of 30 minutes coordinating, documenting, and providing care for this patient excluding time spent in the performance of separately billed services or time spent by another provider. Giovanny Mooney, DO Subjective Pt states she feels a lot better and states he can tell a lot of fluid is off as her abdomen is softer and not as hard. States she is constantly voiding and the aids have been constantly emptying her [place] catheter container. She does report that she is weak and has been getting progressively weaker recently even before this admission. States that she is furniture walking at home and has stopped going upstairs due to not being able to get her feet under her. States while here she is getting somewhat weaker and can not get up from a lower position. Is now using a walker and getting around a little better. She denies any lightheadedness, dizziness, cp, sob, palpitations both at rest or with ambulation. States it is just a weakness issue and all the fluid. No other complaints or issues to report at this time. Review of Systems Review of Systems: All systems reviewed & are unremarkable except as noted in HPI & below Constitutional: + weakness Genitourinary: + urinary frequency Musculoskeletal: + muscle weakness Neurologic: + unsteadiness and + generalized weaknes s Physical Exam Constitutional: WD/WN, vitals as above + ill appearing and + overweight Eyes: PERRL Neck: trachea midline, no thyromegaly Respiratory: normal respiratory effort, lungs clear to auscultation Auscultation: + diminished lung sounds Cardiovascular: RRR, no murmur, no edema Rate/Rhythm: regular rate and regular rhythm Vessels: + JVD Extremities: + pedal edema and + edema Gastrointestinal (Abdomen): Inspection/Auscultation: normal bowel sounds and + abdominal edema Percussion/Palpation: + ascites Musculoskeletal: no cyanosis or clubbing, extremities motor strength 5/5 Skin: no rashes, warm and dry Neurologic: PERRL, EOMI, accommodation nl, no face palsy, no dysarthria Psychiatric: A+Ox3, euthymic affect Results & Data Vital Signs (Past 12 Hours) Vital Signs Temp Pulse Pulse Resp BP BP Pulse Ox 05/07/25 08:22 36.6 C 95 H 20 95/63 L 90 05/07/25 05:31 91 H 05/07/25 03:39 36.7 C 83 20 94/61 L 92 05/07/25 00:20 36.7 C 84 20 111/72 97 05/06/25 22:33 O2 Del Method O2 Flow Rate 05/07/25 08:22 Nasal Cannula 2 05/07/25 05:31 05/07/25 03:39 Room Air 05/07/25 00:20 Room Air 05/06/25 22:33 Nasal Cannula 2 Laboratory Results Coagulation 05/07/25 Range/Units 05:54 PT 12.7 H (9.0-12.0) Seconds CBC 05/07/25 Range/Units 05:54 WBC 6.79 (4.8-10.8) K/ul RBC 3.93 L (4.20-5.40) M/uL Hgb 12.2 (12.0-16.0) g/dl Hct 37.0 (37.0-47.0) % Plt Count 119 L (130-400) K/uL Neut # (Auto) 4.80 (1.40-6.50) K/uL Lymph # (Auto) 0.74 L (1.20-3.40) K/uL [place] # (Auto) 0.81 H (0.11-0.59) K/uL Eos # (Auto) 0.39 (0.00-0.50) K/uL Baso # (Auto) 0.02 (0.00-0.20) K/uL Comprehensive Metabolic Panel 05/07/25 Range/Units 05:54 Sodium 137 (136-145) mmol/L Potassium 5.1 (3.5-5.1) mmol/L Chloride 94 L (98-107) mmol/L Carbon Dioxide 40 H (21-32) mmol/L BUN 15 (6-23) mg/dl Creatinine 0.77 (0.6-1.2) mg/dl Glucose 105 H (70-99(Fasting)) mg/dl Calcium 8.2 L (8.6-10.3) mg/dl Intake and Output 05/06/25 05/07/25 05/07/25 22:59 06:59 14:59 Intake Total 350 / 1590 300 / 1590 Output Total 901 / 1644 500 / 1644 Balance -551 / -54 -200 / -54 Intake: Oral 350 / 1590 300 / 1590 Output: Urine Amount (Catheter) 900 / 1400 500 / 1400 External 900 / 1400 500 / 1400 # Bowel Movements 1 / 4 Other: # Unmeasured Voids 1 Weight 70 kg Weight Measurement Method Built in [facility] Medications Administered Current Inpatient Medications Acetaminophen (Acetaminophen 325 Mg Tab) 650 mg PO Q4H PRN PRN Reason: Pain or Fever Stop: 06/03/25 17:55 Al Hydrox/Mg Hydrox/Simethicone (Aluminum/Magnesium Susp 30 Ml Udc) 15 ml PO Q4H PRN PRN Reason: Dyspepsia Stop: 06/03/25 17:55 Enoxaparin Sodium (Enoxaparin Inj 40 Mg/0.4 Ml Syr) 40 mg SQ DAILY@1800 [place] Stop: 06/03/25 18:44 Last Admin: 05/06/25 17:09 Dose: 40 mg Furosemide (Furosemide 40 Mg/4 Ml Vial) 40 mg IV [id number] [facility] Stop: 06/04/25 13:59 Last Admin: 05/07/25 06:02 Dose: 40 mg Magnesium Oxide (Magnesium Oxide 400 Mg Tab) 400 mg PO BID [place] Stop: 06/05/25 12:29 Last Admin: 05/07/25 09:55 Dose: 400 mg Melatonin (Melatonin 3 Mg Tab) 3 mg PO HS PRN PRN Reason: Sleep Stop: 06/03/25 17:55 Ondansetron HCl (Ondansetron Inj 2 Mg/Ml 2 Ml Vial) 4 mg IV Q6H PRN PRN Reason: Nausea Stop: 06/03/25 17:55 Polyethylene Glycol (Polyethylene (Miralax) 17 Gm Pack) 17 gm PO DAILY PRN PRN Reason: Constipation Stop: 06/03/25 17:55 Spironolactone (Spironolactone 100 Mg Tab) 100 mg PO QAM [place] Stop: 06/04/25 08:59 Last Admin: 05/06/25 08:28 Dose: 100 mg PG Care Time/CCT Total # of Minutes Spent Total Time Spent: 30 Coding Level of Care Code 01543 SUB INP/OBS CARE 3/50MIN History Comprehensive Exam Comprehensive Medical Decision Making High Complexity Diagnoses Acute on chronic respiratory failure with hypoxia and hypercapnia J96.21; J96.22 Right heart failure due to pulmonary hypertension I27.29; I50.810 Alcoholic cirrhosis of liver with ascites K70.31 Anasarca R60.1 Bilateral pleural effusion J90 Time Spent (min) 60 Comment 30 minutes spent by BELINAD Talamantes, [address] Mooney
--- NOTE | 2025-05-07 11:29 | Hospitalist Progress Note ---
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 Increase Lasix to 60 mg daily Plan for paracentesis today Aldactone put on hold by cardiology due to high normal potassium Continue to monitor electrolytes and renal function Reviewed therapy note, recommending rehab, discussed this with patient she believes that she will be out of return home with the assistance of family and some assistive devices. Anticipate possible discharge in next 1 to 2 days with ongoing diuresis at home. In the setting of pulmonary pretension, patient may need home oxygen will do two-step prior to discharge Admission and Anticipated Discharge Date Admission Date: May 04, 2025 Subjective Patient reports feeling better, she thinks she is putting out a lot of urine, intake and output/weight has not changed much last 24 hours. Physical Exam Physical Exam: Constitutional: Alert, nontoxic HEENT: Mucous membranes moist. Lungs: Decreased breath sounds, prolonged, crackles at bases CV: S1-S2, regular Abdomen: Abdomen much softer than on admission, edema is less in the abdomen, positive fluid wave Extremities: Continued thick edema lower extremities upper thighs Neuro: No focal deficits, generally weak Psych: Cooperative, normal mood Results & Data Results & Data Vital Signs (Past 12 Hours) Vital Signs Temp Pulse Pulse Resp BP BP Pulse Ox 05/07/25 08:22 36.6 C 95 H 20 95/63 L 90 05/07/25 05:31 91 H 05/07/25 03:39 36.7 C 83 20 94/61 L 92 05/07/25 00:20 36.7 C 84 20 111/72 97 O2 Del Method O2 Flow Rate 05/07/25 08:22 Nasal Cannula 2 05/07/25 05:31 05/07/25 03:39 Room Air 05/07/25 00:20 Room Air Diagnostic Findings Reviewed imaging, laboratory and diagnostic studies. Pertinent findings as below. WBC 6.7 Hemoglobin 12.2 Platelets of 119 Potassium 5.1 Carbon oxide 40 Creatinine 0.77 Magnesium 1.7
--- NOTE | 2025-05-07 14:45 | Ultrasound Report ---
ULTRASOUND-GUIDED PARACENTESIS CLINICAL HISTORY: Ascites PROCEDURE: Procedure and risks were explained. Informed consent was obtained. A final timeout was com pleted. The abdomen was prepped and draped in sterile fashion. 1% lidocaine was utilized for skin ane sthesia. Utilizing ultrasound guidance, a 5 Lao safety centesis catheter was advanced into the right lower quadrant pocket of ascites. Ultrasound images were obtained. 700 mL of yellow ascites fluid was remov ed and sent to the lab. The catheter was removed and Band-Aid applied. The patient tolerated the proc edure well. Vital signs will be monitored postprocedure. IMPRESSION: Ultrasound-guided paracentesis as above. Performed, dictated, and signed by Trace Guevara PA-C; to be co-signed by Dr. Mode Donaldson. Electronically signed by: Mode Donaldson M.D. 05/07/2025 4:16 PM
[2025-05-07] MEDS: FUROSEMIDE 40 MG/4 ML VIAL IV SCH (14:55)
[2025-05-07 18:02] LABS: Appearance Peritoneal Fluid Clear; Color Peritoneal Fluid Pale Yellow; RBC Peritoneal Fluid Auto 2000 /uL; WBC Peritoneal Fluid Auto 407 /ul (0-300)
[2025-05-08 07:32] LABS: Anion Gap 1.0 (3-11); Blood Urea Nitrogen 16.0 mg/dl (6-23); Calcium 8.1 mg/dl (8.6-10.3); Carbon Dioxide 45.0 mmol/L (21-32); Chloride 89.0 mmol/L (98-107); Creatinine Clr Calc Pharmacy 76.8 ml/min; Glucose 82.0 mg/dl (70-99(Fasting)); Potassium 4.8 mmol/L (3.5-5.1); Sodium 135.0 mmol/L (136-145)
[2025-05-08 09:05] LABS: iSTAT Art Bld Gas Base Excess 20.0 meg/L (-9-1.8); iSTAT Art Bld Gas pCO2 Correct 68 mmHg (35-46); iSTAT Art Bld Gas pH Corrected 7.418 (7.35-7.45); iSTAT Arterial Blood Gas pO2 C 45
--- NOTE | 2025-05-08 11:39 | Hospitalist Progress Note ---
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 This is due to biventricular failure due to pulmonary pretension and longtime smoking as well as alcoholic cirrhosis. Patient has significantly responded to the increase in Lasix. Diuresing well. Carbon oxide slightly increased from what her baseline is. She is well compensated for chronic respiratory acidosis. Concerned there might be some slight contraction alkalosis occurring. Discontinue IV Lasix 1 dose of IV Diamox today Start oral Lasix tomorrow for possible plan for home dosing Communication with nurse that patient really should not be on more than 2 L of nasal cannula oxygen, I fully anticipate that she will desaturate with activity, however this will be her baseline. Much higher flow raises her risk for hypercapnia. Will anticipate two-step oxygen evaluation for home oxygen Therapy recommending rehab, patient is unsure that she would want to go to rehab, believes that she has enough family support. May be able to go home with home health care. Will need care coordinated outpatient with PCP, cardio, pulmonary, GI Admission and Anticipated Discharge Date Admission Date: May 04, 2025 Subjective Patient pleased with her diuresis. Denies any chest pain. No lightheadedness or dizziness with changes in positions, but she does get short of breath. Nursing reports she does desaturate with activity. Physical Exam Physical Exam: Constitutional: Alert, nontoxic HEENT: Mucous membranes moist. Lungs: decreased breath sounds, prolonged expiratory phase, poor airflow, dull at bases, some slight pursed lip breathing CV: S1-S2, regular Abdomen: Soft, nontender, nondistended, decreased fluid wave, no tenderness, significant decreased edema in abdomen pannus Extremities: Significant improvement in edema in thighs and legs, skin is now loose and starting to wrinkle Neuro: No focal deficits, generally weak Psych: Cooperative, normal mood Results & Data Results & Data Vital Signs (Past 12 Hours) Vital Signs Temp Pulse Resp BP BP Pulse Ox O2 Del Method 05/08/25 08:02 36.7 C 86 16 100/62 97 Nasal Cannula 05/08/25 07:32 79 91/58 L 98 Nasal Cannula 05/08/25 06:46 85 92/57 L 05/08/25 00:28 36.8 C 94 H 20 95/61 L 97 Room Air O2 Flow Rate 05/08/25 08:02 3 05/08/25 07:32 2 05/08/25 06:46 05/08/25 00:28 2 Diagnostic Findings Reviewed imaging, laboratory and diagnostic studies. Pertinent findings as below. -3.5 L last 24 hours Reviewed reported ABG, this is a venous draw. Sodium 135 Potassium 4.8 Carbon dioxide 45 essentially baseline slightly increased, Paracentesis fluid reviewed, pathology showing mesothelial benign cells
[2025-05-08 13:26] LABS: Lymphocytes, Fluid 16 %; Mono,Macrophage,Mesothelial 80 %; Neutrophils, Fluid 4 %
[2025-05-08] MEDS: acetaZOLAMIDE 500 MG in SYRINGE 0 ML IV ONE (13:41)
--- NOTE | 2025-05-08 14:50 | Cardiology Progress Note ---
Date of Service May 08, 2025 Assessment & Plan (1) Acute on chronic respiratory failure with hypoxia and hypercapnia: (2) Right heart failure due to pulmonary hypertension: (3) Alcoholic cirrhosis of liver with ascites: (4) Anasarca: (5) Bilateral pleural effusion: Plan 65 year old female with longstanding history of alcohol dependence and tobacco use with no medical care for the past five years who presented to [facility] on 05/04/25 for evaluation of lower leg and abdominal swelling. Found to be significantly volume overloaded upon admission with hypokalemia. Admitted for acute on chronic respiratory failure secondary to acute systolic heart failure exacerbation, pulmonary hypertension, and alcoholic cirrhosis of liver with ascites. Received IV Lasix and potassium supplementation. ECHO upon admission with findings c/w right-sided CHF and significant pulmonary hypertension. Has significant alcohol cirrhosis with ascites and anasarca 05/08/2025 1. Anasarca multifactorial including severe pulmonary hypertension and alcoholic cirrhosis. Has responded briskly to diuretics. Agree with transition to oral furosemide and spironolactone following potassium levels. 2. Right heart failure/pulmonary hypertension secondary to underlying pulmonary disease. Would repeat chest x-ray in a.m. versus CT of chest Echocardiogram without intracardiac shunt. Extracardiac shunt suspected likely at hepatic level Admission and Anticipated Discharge Date Admission Date: May 04, 2025 Subjective Patient was seen and personally examined. Notes feels substantially changed/improved since hospitalization. Now able to lift legs with marked edema resolving. No acute worsening of dyspnea no chest pains no orthopnea no tachypalpitations Patient has responded diurese with brisk loss of nearly 7 kg and volume with evidence of diffuse anasarca on initial presentation Maintaining oxygenation on 3 L nasal cannula. Echocardiogram today did not demonstrate intracardiac shunt No history of arthropathy or autoimmune disease. Review of Systems Review of Systems: All systems reviewed & are unremarkable except as noted in Subjective Results & Data Vital Signs (Past 12 Hours) Vital Signs Temp Pulse Resp BP BP Pulse Ox O2 Del Method 05/08/25 08:02 36.7 C 86 16 100/62 97 Nasal Cannula 05/08/25 07:32 79 91/58 L 98 Nasal Cannula 05/08/25 06:46 85 92/57 L O2 Flow Rate 05/08/25 08:02 3 05/08/25 07:32 2 05/08/25 06:46 PG Care Time/CCT Total # of Minutes Spent Total Time Spent with Patient: Total time spent is greater than 50% in coordination of care (as documented) at patient's floor/unit and/or counseling patient: Coding Level of Care Code 18167 SUB INP/OBS CARE 3/50MIN Diagnoses Acute on chronic respiratory failure with hypoxia and hypercapnia J96.21; J96.22 Right heart failure due to pulmonary hypertension I27.29; I50.810 Alcoholic cirrhosis of liver with ascites K70.31 Anasarca R60.1 Bilateral pleural effusion J90
[2025-05-09 07:42] LABS: Hematocrit (blood only) 38.0 % (37.0-47.0); Hemoglobin 12.3 g/dl (12.0-16.0); Mean Corpuscular Hemoglobin 30.5 pg (25.0-34.0); Mean Corpuscular Volume 94.3 fL (80.0-100.0); Platelet Count 113 K/uL (130-400); RDW Standard Deviation 55.5 fL (36.4-46.3); Red Blood Count 4.03 M/uL (4.20-5.40); White Blood Count 5.68 K/ul (4.8-10.8)
[2025-05-09] MEDS: FUROSEMIDE 80 MG TAB PO SCH (08:20)
--- NOTE | 2025-05-09 09:08 | Hospitalist Progress Note ---
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 This is due to biventricular failure due to pulmonary HTN and longtime smoking as well as alcoholic cirrhosis. Patient has significantly responded to the increase in Lasix. Diuresing well. BP on lower side - will hold lasix , communicated with cardiology - CXR ordered ABG obtained yesterday (05/08) Carbon oxide slightly increased from what her baseline is. She is well compensated for chronic respiratory acidosis. Concerned there might be some slight contraction alkalosis occurring. Today's BMP still pending Previous provider communicated with nurse that patient really should not be on more than 2 L of nasal cannula oxygen, anticipate that she will desaturate with activity, however this will be her baseline. Much higher flow raises her risk for hypercapnia. I discussed with RN today - pt is on 2L and sats 91%. Will anticipate two-step oxygen evaluation for home oxygen Therapy recommending rehab, patient is unsure that she would want to go to rehab, believes that she has enough family support. May be able to go home with home health care. Will need care coordinated outpatient with PCP, cardio, pulmonary, GI Admission and Anticipated Discharge Date Admission Date: May 04, 2025 Subjective Pt seen in follow up of acute hypoxic resp. failure, anasarca, right sided HF Currently pt is lying in bed in NAD, she is on suppl. O2 on 2L. BP on lower side and so lasix held this AM Pt reports feeling improved , says she was in hallway walking yesterday with PT Denies any chest pain, any abd. pain, currently denies shortness of breath , she has occasional cough, and some white sputum - reports it's not unusual for her Cardiology also following closely CXR ordered Review of Systems Review of Systems: All systems reviewed & are unremarkable except as noted in Subjective Physical Exam Physical Exam: Constitutional: slim elderly F , chronically ill appearing, on suppl. O2 via NC HEENT: NC/AT. Mucous membranes moist. Lungs: decreased breath sounds, prolonged expiratory phase, poor airflow, no wheezing CV: S1-S2, regular Abdomen: Soft, nontender, nondistended, decreased fluid wave, no tenderness Extremities: Significant improvement in edema in thighs and legs, skin is now loose and starting to wrinkle Neuro: No focal deficits, generally weak Psych: Cooperative, normal mood Results & Data Results & Data Vital Signs (Past 12 Hours) Vital Signs Temp Pulse Resp BP BP Pulse Ox O2 Del Method 05/09/25 08:01 36.6 C 84 20 89/55 L 91 Nasal Cannula 05/08/25 23:44 36.8 C 87 20 93/58 L 99 Nasal Cannula 05/08/25 21:26 Nasal Cannula O2 Flow Rate 05/09/25 08:01 2 05/08/25 23:44 2 05/08/25 21:26 2 Laboratory Results 05/09/25 05/08/25 05/07/25 Range/Units 07:02 08:48 15:00 WBC 5.68 (4.8-10.8) K/ul RBC 4.03 L (4.20-5.40) M/uL Hgb 12.3 (12.0-16.0) g/dl POC Hgb 13.9 (12.0-16.0) g/dl Hct 38.0 (37.0-47.0) % POC Hct 41 (37-47) % MCV 94.3 (80.0-100.0) fL MCH 30.5 (25.0-34.0) pg MCHC 32.4 (32.0-36.0) g/dL RDW Std Deviation 55.5 H (36.4-46.3) fL RDW Coeff of Kayode 16.0 H (11.5-14.5) % Plt Count 113 L (130-400) K/uL MPV 12.4 (9.4-12.4) fL Specimen Type Arterial Sample Site L Radial POC pH 7.41 (7.35-7.45) POC pCO2 69 H (35-46) mmHg POC pO2 46 L (80-95) mmHg POC HCO3 44 H (19-24) shahzad/L POC Total CO2 46 H* (24-31) mmol/L POC Base Excess 20.0 H (-9-1.8) shahzad/L ABG pH (Temp Correct) 7.418 (7.35-7.45) ABG pCO2 (Temp Corrct 68 H (35-46) mmHg POC ABG pO2 at Pt Temp 45 POC ABG O2 Sat 80.0 L (90-95) % Richard Test Pass O2 Delivery Device Cannula POC Sodium 133 L (135-144) mmol/L Sodium Pending POC Potassium 4.6 (3.3-5.0) mmol/L Potassium Pending Chloride Pending Carbon Dioxide Pending Anion Gap Pending BUN Pending Creatinine Pending Est Cr Clr Drug Dosing Pending eGFR Pending BUN/Creatinine Ratio Pending Glucose Pending Calcium Pending Magnesium Pending Fluid Neutrophils % 4 % Fluid Lymphocytes % 16 % Fluid Meso/Macro/[place] % 80 % Fluid Slide Review Medications Administered Current Inpatient Medications Acetaminophen (Acetaminophen 325 Mg Tab) 650 mg PO Q4H PRN PRN Reason: Pain or Fever Stop: 06/03/25 17:55 Al Hydrox/Mg Hydrox/Simethicone (Aluminum/Magnesium Susp 30 Ml Udc) 15 ml PO Q4H PRN PRN Reason: Dyspepsia Stop: 06/03/25 17:55 Enoxaparin Sodium (Enoxaparin Inj 40 Mg/0.4 Ml Syr) 40 mg SQ DAILY@1800 [facility] Stop: 06/03/25 18:44 Last Admin: 05/08/25 17:21 Dose: 40 mg Furosemide (Furosemide 80 Mg Tab) 80 mg PO QAM [facility] Stop: 06/08/25 08:59 Last Admin: 05/09/25 08:20 Dose: Not Given Magnesium Oxide (Magnesium Oxide 400 Mg Tab) 400 mg PO BID [facility] Stop: 06/05/25 12:29 Last Admin: 05/09/25 08:20 Dose: 400 mg Melatonin (Melatonin 3 Mg Tab) 3 mg PO HS PRN PRN Reason: Sleep Stop: 06/03/25 17:55 Ondansetron HCl (Ondansetron Inj 2 Mg/Ml 2 Ml Vial) 4 mg IV Q6H PRN PRN Reason: Nausea Stop: 06/03/25 17:55 Polyethylene Glycol (Polyethylene (Miralax) 17 Gm Pack) 17 gm PO DAILY PRN PRN Reason: Constipation Stop: 06/03/25 17:55 Spironolactone (Spironolactone 100 Mg Tab) 100 mg PO QAM [facility] Stop: 06/04/25 08:59 Last Admin: 05/09/25 08:20 Dose: Not Given
[2025-05-09 09:19] LABS: Anion Gap 2.0 (3-11); Blood Urea Nitrogen 14.0 mg/dl (6-23); Calcium 8.6 mg/dl (8.6-10.3); Carbon Dioxide 41.0 mmol/L (21-32); Chloride 92.0 mmol/L (98-107); Creatinine Clr Calc Pharmacy 83.9 ml/min; Glucose 82.0 mg/dl (70-99(Fasting)); Magnesium 2.1 mg/dl (1.7-2.4); Potassium 4.2 mmol/L (3.5-5.1); Sodium 135.0 mmol/L (136-145)
--- NOTE | 2025-05-09 11:34 | XRay Report ---
XR chest 2V PA/lateral CLINICAL HISTORY: Edema COMPARISON STUDY: 05/04/2025 FINDINGS: Stable prominence of the left hilum. Stable cardiomegaly with increased pulmonary vascular congestion. There are very small bilateral pleural effusions, stable. No pneumothorax. IMPRESSION: Stable CHF. ACT 112: Negative or not required by law. Electronically signed by: Mode Donaldson M.D. 05/09/2025 11:33 AM
--- NOTE | 2025-05-09 12:12 | Cardiology Progress Note ---
Date of Service May 09, 2025 Assessment & Plan (1) Acute on chronic systolic right heart failure: (2) Right heart failure due to pulmonary hypertension: (3) Alcoholic cirrhosis of liver with ascites: (4) Acute on chronic respiratory failure with hypoxia and hypercapnia: Plan 65-year-old female who presented with marked volume overload/anasarca secondary to right heart failure. Patient has responded to IV diuretics. Issues as follows 1. Right heart failure secondary to severe pulmonary hypertension, cirrhosis preserved left ventricular systolic function with marked right ventricular dysfunction. 2. Severe pulmonary disease O2 dependent 3. Alcoholic cirrhosis Recommendations: Continue diuresis with oral furosemide 20 mg p.o. day, spironolactone 12.5 mg p.o. daily Tobacco and alcohol cessation mandatory Continue oxygen supplementation Contact with further questions Admission and Anticipated Discharge Date Admission Date: May 04, 2025 Subjective Patient chart, telemetry reviewed. Care and management discussed with providers. No acute cardiac complaints. Was ambulatory yesterday but declined to ambulate to use restroom today Furosemide held this morning due to low blood pressures. Still with some abdominal distention lower extremity edema remarkably improved. Weight down 7 kg Results & Data Vital Signs (Past 12 Hours) Vital Signs Temp Pulse Resp BP Pulse Ox O2 Del Method O2 Flow Rate 05/09/25 08:20 Nasal Cannula 2 05/09/25 08:01 36.6 C 84 20 89/55 L 91 Nasal Cannula 2 Laboratory Results Laboratory Results - last 24 hr 05/07/25 05/09/25 15:00 07:02 WBC 5.68 RBC 4.03 L Hgb 12.3 Hct 38.0 MCV 94.3 MCH 30.5 MCHC 32.4 RDW Std Deviation 55.5 H RDW Coeff of Kayode 16.0 H Plt Count 113 L MPV 12.4 Sodium 135 L Potassium 4.2 Chloride 92 L Carbon Dioxide 41 H* Anion Gap 2 L BUN 14 Creatinine 0.65 Est Cr Clr Drug Dosing 83.9 eGFR 97.65 BUN/Creatinine Ratio 21.5 H Glucose 82 Calcium 8.6 Phosphorus 3.1 Magnesium 2.1 Fluid Neutrophils % 4 Fluid Lymphocytes % 16 Fluid Meso/Macro/[place] % 80 Fluid Slide Review PG Care Time/CCT Total # of Minutes Spent Total Time Spent with Patient: Total time spent is greater than 50% in coordination of care (as documented) at patient's floor/unit and/or counseling patient: Coding Level of Care Code 18991 SUB INP/OBS CARE 350MIN Diagnoses Acute on chronic systolic right heart failure I50.813 Right heart failure due to pulmonary hypertension I27.29; I50.810 Alcoholic cirrhosis of liver with ascites K70.31 Acute on chronic respiratory failure with hypoxia and hypercapnia J96.21; J96.22 Time Spent (min) 50
[2025-05-09] MEDS: SPIRONOLACTONE 12.5 MG TAB PO SCH (12:54)
[2025-05-10 07:57] LABS: Hematocrit (blood only) 37.9 % (37.0-47.0); Hemoglobin 12.1 g/dl (12.0-16.0); Mean Corpuscular Hemoglobin 30.6 pg (25.0-34.0); Mean Corpuscular Volume 95.7 fL (80.0-100.0); Platelet Count 117 K/uL (130-400); RDW Standard Deviation 57.4 fL (36.4-46.3); Red Blood Count 3.96 M/uL (4.20-5.40); White Blood Count 5.08 K/ul (4.8-10.8)
[2025-05-10 08:22] LABS: Anion Gap 0.0 (3-11); Blood Urea Nitrogen 13.0 mg/dl (6-23); Calcium 8.5 mg/dl (8.6-10.3); Carbon Dioxide 39.0 mmol/L (21-32); Chloride 97.0 mmol/L (98-107); Creatinine Clr Calc Pharmacy 78.8 ml/min; Glucose 78.0 mg/dl (70-99(Fasting)); Magnesium 2.1 mg/dl (1.7-2.4); Potassium 4.1 mmol/L (3.5-5.1); Sodium 136.0 mmol/L (136-145)
[2025-05-10] MEDS: FUROSEMIDE 20 MG TAB PO SCH (10:05)
[2025-05-10] MEDS: OPTIRAY 320 125ml IV ONE (13:06)
--- NOTE | 2025-05-10 13:27 | CT Scan Report ---
CT ANGIOGRAM OF THE CHEST CLINICAL HISTORY: Shortness of breath. Possible pulmonary embolism. COMPARISON STUDY: Chest x-ray dated 05/09/2025 TECHNIQUE: Following the IV administration of 112 cc of Optiray 320, CT angiogram of the chest was pe rformed from the upper abdomen to the thoracic inlet utilizing the pulmonary embolus protocol. Images are reviewed in the axial, sagittal, and coronal planes. 3-D MIPS images are created and assessed. I V contrast was administered without complication. A dose lowering technique was utilized adhering to the principles of ALARA. CT DOSE: 441.02 mGy.cm FINDINGS: The heart is enlarged. There is reflux of contrast into the IVC and hepatic veins. The findings sugge st elevated right heart pressures. There is no significant pericardial effusion. There is a small right pleural effusion and trace left pleural effusion. There is a left aortic arch with an aberrant right subclavian artery. Evaluation for pulmonary emboli is somewhat limited due to respiratory motion artifact. No central em boli are visualized. On image #97/223, there is a 4 mm pulmonary artery filling defect versus artifac t from motion. Within the upper abdomen, there is ascites. There is evidence for interstitial pulmonary edema. There is suspected underlying pulmonary emphysema . There is a 5 cm left lower lobe bulla. On image #103/2-3, there is a 7 mm right lower lobe pulmonar y nodule. Follow-up is recommended. A few scattered additional subcentimeter pulmonary nodules are al so identified. There is no evidence of thoracic aortic dilatation. There is no pathologic adenopathy. No destructive skeletal lesions are visualized. IMPRESSION: 1. Technically limited study secondary to motion artifact 2. Small left lower lobe pulmonary artery filling defects versus artifact from motion. Repeat scannin g could be obtained if there continues to be a strong clinical suspicion over the presence of acute p ulmonary embolism 3. Cardiomegaly and evidence of elevated right heart pressures 4. Interstitial pulmonary edema. Small right pleural effusion and trace left pleural effusion 5. Nonspecific subcentimeter pulmonary nodules, the largest of which measures 7 mm and is located wit hin the right lower lobe. Follow-up recommended 6. Small amount of upper abdominal ascites ACT 112: Negative or not required by law. Electronically signed by: Jesús Lepe M.D. 05/10/2025 1:26 PM
--- NOTE | 2025-05-10 13:57 | Discharge Summary ---
Date of Service May 10, 2025 Admission HPI Per Admitting Provider Patient 65-year-old female who has essentially had no medical care for at least 5 years. Essentially forced to come to the emergency room today by her children for increasing swelling in her legs and abdomen. In the emergency room was noted to be significantly volume overloaded and hypokalemic. Imaging revealed some pleural effusions. I was referred to our service for further evaluation. Time my evaluation patient has received some Lasix and potassium. She is already starting to diurese. Son is at the bedside. She states that she was having a little bit of short of breath with activity. She denies any chest pain. She cannot say how long she has noticed the swelling but has noticed increasing from her legs to her thighs to her hips to her abdomen. She also having some swelling in her left upper extremity. She denies any fever or chills, no cough or cold symptoms. No real changes in her bowel or bladder habits. She is not aware of any other medical conditions. She has not had any significant surgeries. She does have a extensive history of alcohol use. Sounds like she drank mostly beer. She states that she has not had a beer for over 2 months and her son at the bedside confirms. She also states that she has extensive smoking history she also quit smoking about 2 months ago and this is confirmed by her son. Admission Exam Per Admitting Provider Constitutional: Alert, nontoxic, slight distress due to her edema HEENT: Mucous membranes moist. Sclera clear Neck: Soft, no adenopathy Lungs: Decreased breath sounds, prolonged expiratory phase, no wheezes, crackles at the bases CV: S1-S2, regular, no significant murmur Abdomen: Soft, nontender, nondistended, questionable fluid wave, extensive edema in her abdominal pannus essentially up to her nipples Extremities: Severe edema in the lower extremities +4 up through the hips and thighs, 2+ edema left upper extremity Musculoskeletal: No significant swollen or tender joints Derm: Some ruborous and flaking skin of the lower extremity consistent with her edema, no evidence of cellulitis Neuro: No focal deficits Psych: Cooperative, normal mood Principal Diagnosis Acute on chronic respiratory failure with hypoxia and hypercapnia Right heart failure due to pulmonary hypertension Alcoholic cirrhosis of liver with ascites Bilateral pleural effusion Discharge Exam Constitutional: slim elderly F , chronically ill appearing, on suppl. O2 via NC HEENT: NC/AT. Mucous membranes moist. Lungs: decreased breath sounds, prolonged expiratory phase, poor airflow, no wheezing CV: S1-S2, regular Abdomen: Soft, nontender, nondistended, no tenderness Extremities: Significant improvement in edema in thighs and legs, skin is now loose and starting to wrinkle Neuro: No focal deficits, generally weak Psych: Cooperative, normal mood Discharge Data Allergies Allergy/AdvReac Type Severity Reaction Status Date / Time No Known Allergies Allergy Verified 05/04/25 15:03 Consultations 05/04/25 14:43 ED Decision to Admit Stat 05/06/25 08:19 Consult Cardiology Routine Ordered Studies 05/04/25 15:27 CT Abd and Pelvis [CT abd pelvis wo con] Routine FINDINGS: LOWER CHEST: Cardiomegaly. There are coronary calcifications. Small pericardial fluid. Small pleural fluids. Emphysematous changes. LIVER: No focal lesion identified in this noncontrast study. Cirrhotic liver. GALLBLADDER/BILIARY: Cholelithiasis without evidence of cholecystitis. No abnormal biliary dilatation. SPLEEN: Unremarkable. PANCREAS: Unremarkable. ADRENALS: Unremarkable. KIDNEYS: Unremarkable. No stones or hydronephrosis identified. PERITONEUM/RETROPERITONEUM. Large volume abdominopelvic ascites. No lymphadenopathy by size criteria. No aortic aneurysm. ExtensiveCirrhosis GASTROINTESTINAL: No obstruction. Normal appendix. Colonic diverticulosis without evidence of diverticulitis. REPRODUCTIVE: No suspicious pelvic mass identified. ABDOMINAL WALL: Diffuse anasarca. BONES: No acute findings. IMPRESSION: Cirrhosis. Large volume abdominopelvic ascites. Anasarca CHF with cardiomegaly and small pleural fluids. 05/07/25 08:16 IR paracentesis abd w/img US Routine PROCEDURE: Procedure and risks were explained. Informed consent was obtained. A final timeout was completed. The abdomen was prepped and draped in sterile fashion. 1% lidocaine was utilized for skin anesthesia. Utilizing ultrasound guidance, a 5 Japanese safety centesis catheter was advanced into the right lower quadrant pocket of ascites. Ultrasound images were obtained. 700 mL of yellow ascites fluid was removed and sent to the lab. The catheter was removed and Band-Aid applied. The patient tolerated the procedure well. Vital signs will be monitored postprocedure. IMPRESSION: Ultrasound-guided paracentesis as above. 05/10/25 12:18 CT angio chest PE protocol Urgent FINDINGS: The heart is enlarged. There is reflux of contrast into the IVC and hepatic veins. The findings suggest elevated right heart pressures. There is no significant pericardial effusion. There is a small right pleural effusion and trace left pleural effusion. There is a left aortic arch with an aberrant right subclavian artery. Evaluation for pulmonary emboli is somewhat limited due to respiratory motion artifact. No central emboli are visualized. On image #97/223, there is a 4 mm pulmonary artery filling defect versus artifact from motion. Within the upper abdomen, there is ascites. There is evidence for interstitial pulmonary edema. There is suspected underlying pulmonary emphysema. There is a 5 cm left lower lobe bulla. On image #103/2-3, there is a 7 mm right lower lobe pulmonary nodule. Follow-up is recommended. A few scattered additional subcentimeter pulmonary nodules are also identified. There is no evidence of thoracic aortic dilatation. There is no pathologic adenopathy. No destructive skeletal lesions are visualized. IMPRESSION: 1. Technically limited study secondary to motion artifact 2. Small left lower lobe pulmonary artery filling defects versus artifact from motion. Repeat scanning could be obtained if there continues to be a strong clinical suspicion over the presence of acute pulmonary embolism 3. Cardiomegaly and evidence of elevated right heart pressures 4. Interstitial pulmonary edema. Small right pleural effusion and trace left pleural effusion 5. Nonspecific subcentimeter pulmonary nodules, the largest of which measures 7 mm and is located within the right lower lobe. Follow-up recommended 6. 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 This is due to right heart failure due to pulmonary HTN and longtime smoking as well as alcoholic cirrhosis. Pt reports she quit smoking and drinking alcohol. Patient has significantly improved with diuresis. Cardiology was consulted during her hospital stay - and she is now on oral lasix 20 mg daily and 12.5mg spironolactone daily. 2-step study obtained - pt requires 3L of suppl. O2 at rest and 4L w/ ambulation. Will need care coordinated outpatient with PCP, cardiology, pulmonary, GI. Incidental finding on chest CT - pulmonary nodule - will need outpt follow up. Total Time Total Time Spent Total Time Spent (In Minutes): 40 Discharge Plan Discharge Items Patient Disposition: Home - Home Health Services Reason For Visit: ANASARCA Discharge Diagnosis: Acute on chronic respiratory failure with hypoxia and hypercapnia Right heart failure due to pulmonary hypertension Alcoholic cirrhosis of liver with ascites Bilateral pleural effusion Condition on Discharge: Fair Activity: Per Instructions section Non-emergency contact: Primary Care Provider, Specialist, Cash Management Coordinator, Core Maker Helper and Cook Dinner Call non-emergency contact if: you have any medication questions and your symptoms worsen Follow-up/Referrals: Saud Fernandez MD [Outside Practitioners] - (Date & Time 05/14/2025 10:40 AM Provider: Saud Fernandez MD [facility]) Diet: Heart Healthy and Low Sodium (2gm) Fluids: 1800ml (7 cups) Addtl Attending Provider Instructions: Follow up with primary care physician, psychiatric assistant, instrument inspector and hydro operator. Take furosemide 20 mg daily and spironolactone 12.5 mg daily. Monitor your weight daily (in the morning and keep a log). You will need to use oxygen 3L at rest and 4L with ambulation. Your oxygen saturation should be at 88-92%. It is important that you abstain from tobacco and alcohol. Addtl Finger Waver Provider Instructions: Call your Primary Care doctor if any of the following symptoms or problems start or get worse: * Shortness of breath or difficulty breathing * Wake up at night short of breath * Chest pain * Cough * Swelling of your hands, feet, or legs * More fatigued or tired with your normal activity * Palpitations - sudden fast heart beats WEIGHT * Weigh yourself every morning after using the bathroom. * Use the same scale. * Wear the same amount of clothing. * Write your weight down on a chart. * Call your Primary Care doctor if you gain more than 2-3 pounds in 1-2 days. MEDICATIONS * Use this discharge instruction sheet for medication instructions. * Take your medications at the time your doctor ordered. * Do not skip a dose of your medicines. * If you miss a dose of medicine, take it as soon as possible, but DO NOT DOUBLE A DOSE. * Read your medicine information when you get home. * Know all of the side effects of your medicine. If in doubt, ask your pharmacist * Call your Primary Care doctor's office if you have any side effects. * Be sure all of your doctors know what medicine and herbs you take (including cold, flu, and herbal medicine). Take the following with you to your follow-up doctor appointments: * Weight Chart * Medication List * List of questions Do not drink excessive alcohol, beer or wine. Pending Studies at Discharge: No Stand-Alone Forms: My [facility] ParentsWare, Smoking Cessation Medications and DC Order Prescriptions: New furosemide 20 mg Tablet 20 mg PO QAM Qty: 30 0RF spironolactone 25 mg Tablet 12.5 mg PO DAILY Qty: 20 0RF Continued naproxen sodium [Aleve] 220 mg Tablet 220 mg PO Q8H PRN (Reason: Pain) Discharge Orders: Discharge Order (Routine); Ordered 05/10/25 Ordered By: Deny Flowers Discharge Order- CHF (Routine); Ordered 05/10/25 Ordered By: Deny Flowers Admission Data Admit Date/Time: 05/04/25 15:27 Attending Provider: Deny Flowers Admit Provider: Sergio Roca Primary Care Provider: PCP,NO Other Providers: Sergio Roca; Emerson Paulino
[2025-05-10 14:53] VITALS: RESP 16; TEMP 98.4; O2SAT 96
[2025-05-10 16:55] VITALS: BP 109/71; PULSE 92
== END 2025-05-10 17:21 | disposition home health service (06) | DRG 432 ==
LOC: ED 13:26 → EDINP 15:27 → SUATTDRO 15:27 → 2N 17:56 → 3N 05-10 00:51